=== PATIENT | female | born 1955 | race Caucasian/White ===

== ENCOUNTER 2019-01-04 09:06 | Emergency (ER) | payer BC ==
[~2019-01-04] VITALS: Ht 165.1 cm; Wt 61.8 kg
[2019-01-04 09:18] VITALS: Ht 165.1 cm; Wt 61.8 kg
[2019-01-04] MEDS ORDERED: XANAX0.25 MG PO (09:23)
[2019-01-04] MEDS ORDERED: VOLTAREN100 GM TOPICAL (09:24)
[2019-01-04] MEDS ORDERED: AMBIEN10 MG PO (09:24)
[2019-01-04] MEDS ORDERED: CLARITIN 10 MG10 MG PO (09:24)
[2019-01-04] MEDS ORDERED: HYDROCHLOROTHIA25 MG PO (09:24)
[2019-01-04] MEDS ORDERED: COZAAR100 MG PO (09:25)
[2019-01-04] MEDS ORDERED: PROBIOTIC1 EAC1 PO (09:25)
[2019-01-04] MEDS ORDERED: POTASSIUM20 MEQ/11 PO (09:25)
[2019-01-04] MEDS ORDERED: ALBUTEROL SULF8.5 GM INH (09:26)
[2019-01-04] MEDS ORDERED: ZANTAC300 MG PO (09:27)
[2019-01-04 10:03] LABS: BASOPHILS 0.1 % (0-2); EOSINOPHILS 0 % (0-7); HEMATOCRIT 38.4 % (36.0-48.0); HEMOGLOBIN 13.6 g/dL (12-16); IMMATURE GRANULOCYTES 0.4 % (0-5); LYMPHOCYTES 1.6 % (15-50); MCH 32.5 pg (26.0-34.0); MCHC 35.4 g/dL (31.0-37.0); MCV 91.9 fL (80.0-100.0); MEAN PLATELET VOLUME 9.1 fL (7.4-10.4); NEUTROPHILS 92.9 % (40-80); PLATELET COUNT 214 10x3/uL (130-400); RBC 4.18 10x6/uL (4.00-5.40); RDW 12.3 % (11.5-14.5); WBC 18.9 10x3/uL (4.8-10.8)
[2019-01-04 10:12] LABS: COLOR DARK YELLOW (YELLOW)
[2019-01-04 10:13] LABS: AMORPHOUS SEDIMENT <1+ /lpf (NONE SEEN); APPEARANCE HAZY (CLEAR); BACTERIA MANY /hpf (NONE SEEN); BILIRUBIN NEGATIVE (NEGATIVE); EPITHELIAL CELLS 0-5 /hpf (0-5); GLUCOSE NEGATIVE (NEGATIVE); GRANULAR CAST 0-5 /lpf (NONE SEEN); KETONE LARGE mg/dL (NEGATIVE); MUCUS <1+ /lpf (NONE SEEN); NITRITE NEGATIVE (NEGATIVE); PROTEIN 1+ mg/dL (NEGATIVE); UROBILINOGEN NORMAL (NORMAL)
[2019-01-04 10:16] LABS: ALBUMIN 3.2 g/dL (3.4-5.0); ALKALINE PHOSPHATASE 118 U/L (46-116); ALT (SGPT) 24 U/L (10-68); BILIRUBIN - TOTAL 0.55 mg/dL (0.2-1.3); CALC OSMOLALITY 251 mosm/kg (275-300); CALCIUM 9.1 mg/dL (8.5-10.1); CARBON DIOXIDE 25.3 mmol/L (21.0-32.0); CHLORIDE - SERUM 90 mmol/L (98-107); CREATININE - SERUM 0.7 mg/dL (0.6-1.3); GLUCOSE 125 mg/dL (74-106); POTASSIUM - SERUM 3.3 mmol/L (3.5-5.1); PROTEIN - SERUM 7.6 g/dL (6.4-8.2); SODIUM 126 mmol/L (136-145); UREA NITROGEN 8 mg/dL (7-18); eGFR NON AFRICAN AMERICAN 90 mL/min (90-120)
[2019-01-04] MEDS ORDERED: LEVOFLOXACIN500 MG PO (10:27)
[2019-01-04 12:11] VITALS: BP 120/84
== END 2019-01-04 12:30 | disposition home or self-care (01) ==
LOC: D.ER 09:06
PROVIDERS: Emergency Medicine
DX: N39.0 Urinary tract infection, site not specified (principal); E87.6 Hypokalemia